=== PATIENT | female | born 1940 | race Caucasian/White ===

== ENCOUNTER 2020-06-29 20:21 | Emergency (ER) | payer OTHER ==
[~2020-06-29] VITALS: Ht 147.3 cm; Wt 50.8 kg
[2020-06-29] MEDS: ONDANSETRON ODT 4 MG TAB.RAPDIS SL ONE (20:34)
[2020-06-29] MEDS ORDERED: HYDROMORPHONE 1 MG/1 ML DISP.SYRIN ONE (20:35)
[2020-06-29] MEDS: HYDROMORPHONE 1 MG/1 ML DISP.SYRIN IM ONE (20:35)
[2020-06-29] MEDS ORDERED: ONDANSETRON ODT 4 MG TAB.RAPDIS ONE (20:35)
[2020-06-29 21:37] VITALS: BP 122/60
--- NOTE | 2020-06-29 21:37 | NUR ---
Patient discharged to home in stable condition. Written and verbal after care instructions given. Patient verbalizes understanding of instructions. Stressed follow up or return to ER for worsening s/s.
== END 2020-06-29 21:37 | disposition home or self-care (01) ==
LOC: ER 20:23
PROC: 2W39X1Z Immobilization of Left Upper Extremity using Splint (ICD-10-PCS; principal; 2020-06-29)
DX: S42.332A Displaced oblique fracture of shaft of humerus, left arm, initial encounter for closed fracture (principal); W01.0XXA Fall on same level from slipping, tripping and stumbling without subsequent striking against object, initial encounter; Y93.K1 Activity, walking an animal; Y92.89 Other specified places as the place of occurrence of the external cause; Z96.612 Presence of left artificial shoulder joint
CPT/HCPCS: 29105; 73060; 96372; 99283; J1170; A4663; Q0162